=== PATIENT | female | born 1955 | race Caucasian/White ===

== ENCOUNTER → 2018-03-01 | Outpatient (CLI) | payer BC | END | disposition home or self-care (01) | LOC: OLS 15:52 → LAB SHORT 15:52 | PROVIDERS: Obstetrics & Gynecology Gynecology | DX: Z12.4 Encounter for screening for malignant neoplasm of cervix (principal) | CPT/HCPCS: 87624; G0123 ==

== ENCOUNTER → 2019-05-17 | Outpatient (CLI) | payer BC ==
[2019-05-19 15:07] LABS: HPV 16 Negative (Negative); HPV 18 Negative (Negative); HPV OTHER HR TYPES Negative (Negative)
== END | disposition home or self-care (01) ==
LOC: LAB 17:29 → LAB SHORT 17:29
PROVIDERS: Obstetrics & Gynecology Gynecology
DX: Z12.4 Encounter for screening for malignant neoplasm of cervix (principal)
CPT/HCPCS: 87624; G0123

== ENCOUNTER → 2022-10-19 | Outpatient (CLI) | payer MEDICARE, OTHER | END | disposition home or self-care (01) | LOC: LAB SHORT 11:30 | DX: B35.1 Tinea unguium (principal) | CPT/HCPCS: 87220 ==

== ENCOUNTER 2023-07-30 07:43 | Day surgery (SDC) | payer MEDICARE, OTHER ==
[~2023-07-30] VITALS: Ht 160 cm; Wt 77.5 kg
[2023-07-30 09:49] VITALS: BP 99/67
--- NOTE | 2023-07-30 09:50 | NUR ---
07/30/23 0950 Elaine Shetty IV DC'D, CATH INTACT. PT TOLERATED WELL. COBAN & GAUZE IN PLACE
== END 2023-07-30 09:44 | disposition home or self-care (01) ==
LOC: ORSCSDS 07:43
PROVIDERS: Surgery
PROC: 0DJD8ZZ Inspection of Lower Intestinal Tract, Via Natural or Artificial Opening Endoscopic (ICD-10-PCS; principal; 2023-07-30 09:00)
DX: Z12.11 Encounter for screening for malignant neoplasm of colon (principal)
CPT/HCPCS: J2704; J7120

== ENCOUNTER → 2024-04-18 | Outpatient (CLI) | payer MEDICARE, OTHER | LOC: LAB 15:45 → LAB SHORT 15:45 | DX: R30.0 Dysuria (principal) | CPT/HCPCS: 87086 ==